=== PATIENT | male | born 1960 | race Caucasian/White ===

== ENCOUNTER 2021-05-22 11:55 | Inpatient (IN) ==
[2021-05-22] MEDS ORDERED: Ipratropium/Albuterol Neb 3 ML IH ONE (12:11)
[2021-05-22] MEDS ORDERED: Piperacillin/Tazobactam 3.375 GM in 0.9 % Sodium Chloride Mini Bag 100 ML IVPB ONE (12:11)
[2021-05-22 12:40] LABS: Basophils % 0.1 %; Eosinophils % 0.2 %; Hematocrit 30.3 % (37.5-50.1); Hemoglobin 8.9 g/dL (12.9-16.9); Immature Granulocytes % 0.5 % (0-4); Lymphocytes # 0.5 K/mcL (0.6-4.6); Lymphocytes % 2.6 %; Mean Corpuscular HGB Conc 29.4 g/dL (31.6-35.5); Mean Corpuscular Hemoglobin 25.4 pg (28.0-33.3); Mean Corpuscular Volume 86.6 fL (83.0-100.0); Mean Platelet Volume 9.4 fL (9.4-12.4); Monocytes # 1.2 K/mcL (0.0-1.3); Monocytes % 6.7 %; Neutrophils # 15.8 K/mcL (1.6-8.9); Platelet Count 119 K/mcL (140-400); Red Cell Distribution Width 16.7 % (11.5-14.5); Segmented Neutrophils % 89.9 %; White Blood Count 17.6 K/mcL (4.3-11.1)
[2021-05-22 13:07] LABS: BUN/Creatinine Ratio 21 (6-26); Blood Urea Nitrogen 17 mg/dL (8-23); Calcium 13.4 mg/dL (8.6-10.3); Carbon Dioxide 43 mEq/L (23-29); Chloride 87 mEq/L (98-107); Glucose 58 mg/dL (70-105); Osmolality,Calculated 279 (280-300); Potassium 3.1 mEq/L (3.5-5.1); Sodium 135 mEq/L (136-145); Troponin I 0.11 ng/mL (< 0.04); eGFR For African Americans > 60 (> 60); eGFR For Non-African Americans > 60 (> 60)
[2021-05-22] MEDS ORDERED: 0.9 % Sodium Chloride 1,000 ML IVC ONE (13:27)
[2021-05-22] MEDS ORDERED: *HR* Dextrose 50 % in Water (Syg) 50 ML SYRINGE IVP ONE (13:35)
[2021-05-22 13:38] LABS: Influenza A PCR Negative (Negative); Influenza B PCR Negative (Negative); Resp. Syncytial Virus PCR Negative (Negative)
[2021-05-22 13:39] LABS: SARS-CoV-2 by PCR (In House) Negative (Negative)
[2021-05-22] MEDS ORDERED: Isovue-370 500 ML BOTTLE IVP ONE (14:11)
[2021-05-22] MEDS ORDERED: Naloxone 0.4 MG/ML INJ IVP PRN (14:46)
[2021-05-22] MEDS ORDERED: Acetaminophen 325 MG TABLET PO PRN (14:46)
[2021-05-22] MEDS ORDERED: Ondansetron 4 MG/2 ML VIAL IVP PRN (14:46)
[2021-05-22] MEDS ORDERED: Perflutren Lipid Microsphere 1.3 ML in 0.9 % Sodium Chloride 8.7 ML IVP PRN (14:50)
[2021-05-22] MEDS ORDERED: D5% in Water 1,000 ML IVC PRN (14:56)
[2021-05-22] MEDS ORDERED: Dextrose 4 GM Chewable Tablets PO PRN ×2 (14:56)
[2021-05-22] MEDS: Levalbuterol Neb 0.63 MG/3 ML IH SCH ×2 (16:19→21:00)
[2021-05-22] MEDS ORDERED: diazePAM 10 MG TABLET PO PRN (16:20)
[2021-05-22 16:52] LABS: VBG HCO3 39 mEq/L (21-27); VBG PCO2 59 mmHg (41-51); VBG PH 7.43 pH Units (7.32-7.42); VBG PO2 154 mmHg (25-50)
[2021-05-22] MEDS ORDERED: Acetaminophen IV 1,000 MG/100 ML BAG IVPB ONE (16:55)
[2021-05-22 17:01] LABS: ABG Base Excess 14 mEq/L (-2 to 3); ABG Chloride 91 mEq/L (98-107); ABG Glucose 68 mg/dL (60-95); ABG HCO3 41 mEq/L (21-27); ABG Ionized Calcium 1.74 mmol/L (1.15-1.35); ABG Oxygen Saturation 98 % (95-98); ABG PCO2 60 mmHg (35-45); ABG PH 7.44 pH Units (7.32-7.45); ABG PO2 104 mmHg (85-104); ABG TCO2 43 mEq/L (20-26); Blood Gas Modality NIV
[2021-05-22 17:17] LABS: Magnesium 1.4 mg/dL (1.6-2.6)
[2021-05-22 17:27] LABS: Troponin I 0.15 ng/mL (< 0.04)
[2021-05-22] MEDS: *HR* LORazepam 2 MG/ML VIAL IVP ONE ×2 (17:46→21:32)
[2021-05-22] MEDS: levoFLOXacin 750 MG/150 ML 750 MG/150 ML BAG IVPB SCH (17:49)
[2021-05-22] MEDS ORDERED: *HR* Heparin 5,000 UNIT/ML VIAL IVP PRN (17:56)
[2021-05-22] MEDS ORDERED: *HR* Heparin 5,000 UNIT/ML VIAL SQ SCH (18:00)
[2021-05-22] MEDS ORDERED: Heparin 25,000UNIT/250ML 1/2NS 25,000 UNIT/250 ML IV.SOLN IVC SCH (18:00)
[2021-05-22 18:33] LABS: Hemoglobin 8.1 g/dL (12.9-16.9); Red Cell Distribution Width 16.6 % (11.5-14.5)
[2021-05-22 18:35] LABS: Hematocrit 26.6 % (37.5-50.1); Immature Platelets 2.1 % (1.1-6.1); Mean Corpuscular HGB Conc 30.5 g/dL (31.6-35.5); Mean Corpuscular Hemoglobin 25.9 pg (28.0-33.3); Mean Platelet Volume 8.7 fL (9.4-12.4); Red Blood Count 3.13 M/mcL (4.19-5.50); White Blood Count 14.6 K/mcL (4.3-11.1)
[2021-05-22 18:44] LABS: Heparin anti-factor XA UFH 0.99 IU/mL (0.30-0.70)
[2021-05-22 18:45] LABS: INR 1.5; Prothrombin Time 16.8 Seconds (9.4-12.1)
[2021-05-22] MEDS ORDERED: Apixaban 5 MG TABLET PO SCH (21:00)
[2021-05-22] MEDS ORDERED: *HR* LORazepam 2 MG/ML VIAL IVP ONE (21:17)
[2021-05-22] MEDS: *HR* Dextrose 50 % in Water (Syg) 50 ML SYRINGE IVP PRN (23:40)
[2021-05-23] MEDS: *HR* Heparin 5,000 UNIT/ML VIAL IVP PRN ×2 (02:30→10:34)
[2021-05-23] MEDS: Levalbuterol Neb 0.63 MG/3 ML IH SCH ×3 (04:25→15:49)
[2021-05-23 04:29] LABS: Basophils % 0.2 %; Eosinophils # 0.1 K/mcL (0.0-0.6); Eosinophils % 1.3 %; Hematocrit 27.8 % (37.5-50.1); Hemoglobin 8.2 g/dL (12.9-16.9); Immature Granulocytes % 0.6 % (0-4); Lymphocytes # 0.4 K/mcL (0.6-4.6); Lymphocytes % 3.3 %; Mean Corpuscular HGB Conc 29.5 g/dL (31.6-35.5); Mean Corpuscular Hemoglobin 25.5 pg (28.0-33.3); Mean Corpuscular Volume 86.6 fL (83.0-100.0); Monocytes # 0.8 K/mcL (0.0-1.3); Monocytes % 7.2 %; Neutrophils # 9.8 K/mcL (1.6-8.9); Platelet Count 102 K/mcL (140-400); Red Blood Count 3.21 M/mcL (4.19-5.50); Red Cell Distribution Width 16.7 % (11.5-14.5); Segmented Neutrophils % 87.4 %; White Blood Count 11.2 K/mcL (4.3-11.1)
[2021-05-23 04:30] LABS: VBG HCO3 41 mEq/L (21-27); VBG PCO2 68 mmHg (41-51); VBG PH 7.38 pH Units (7.32-7.42); VBG PO2 94 mmHg (25-50)
[2021-05-23 04:39] LABS: INR 1.7; Prothrombin Time 18.9 Seconds (9.4-12.1)
[2021-05-23 04:52] LABS: Alanine Aminotransferase 11 Units/L (7-52); Albumin 2.6 g/dL (3.5-5.7); Albumin/Globulin Ratio 1.2 (1.1-2.2); Alkaline Phosphatase 97 Units/L (34-104); Aspartate Amino Transferase 18 Units/L (13-39); BUN/Creatinine Ratio 19 (6-26); Bilirubin,Total 0.5 mg/dL (0.3-1.0); Blood Urea Nitrogen 14 mg/dL (8-23); Calcium 12.6 mg/dL (8.6-10.3); Carbon Dioxide 42 mEq/L (23-29); Chloride 92 mEq/L (98-107); Globulin 2.1 g/dL (2.4-3.5); Glucose 58 mg/dL (70-105); Magnesium 1.3 mg/dL (1.6-2.6); Osmolality,Calculated 282 (280-300); Phosphorous 1.8 mg/dL (2.7-4.5); Potassium 3.1 mEq/L (3.5-5.1); Sodium 137 mEq/L (136-145); Total Protein 4.7 g/dL (6.4-8.9); Troponin I 0.09 ng/mL (< 0.04); eGFR For African Americans > 60 (> 60); eGFR For Non-African Americans > 60 (> 60)
[2021-05-23] MEDS: *HR* Dextrose 50 % in Water (Syg) 50 ML SYRINGE IVP PRN (05:35)
[2021-05-23] MEDS ORDERED: *HR* LORazepam 2 MG/ML VIAL IVP ONE (05:59)
[2021-05-23] MEDS ORDERED: Potassium Phosphate 44 MEQ in 0.9 % Sodium Chloride 250 ML IVPB ONE (07:24)
[2021-05-23 07:56] VITALS: TEMP 97.8
[2021-05-23] MEDS: levoFLOXacin 750 MG/150 ML 750 MG/150 ML BAG IVPB SCH (08:25)
[2021-05-23] MEDS ORDERED: Furosemide 20 MG TABLET PO SCH (09:00)
[2021-05-23] MEDS ORDERED: valACYclovir 500 MG TABLET PO SCH (09:00)
[2021-05-23] MEDS ORDERED: Pantoprazole 40 MG VIAL IVP SCH (09:00)
[2021-05-23] MEDS ORDERED: Aspirin Enteric Coated 81 MG Tablet PO SCH (09:00)
[2021-05-23] MEDS ORDERED: Morphine Sulfate Oral CONC 10 MG/0.5 ML ORAL.SYG SL PRN (15:59)
[2021-05-23 17:13] VITALS: BP 123/82; PULSE 120; O2SAT 100
== END 2021-05-23 18:38 | disposition hospice, home (50) | DRG 180 ==
LOC: EMEROOARM 11:55 → 2NNU 11:55
PROVIDERS: ADMIT Hospitalist; ATTEND Hospitalist